=== PATIENT | female | born 1950 ===

== ENCOUNTER 2019-05-13 11:49 | Outpatient (REF) | payer MEDICARE, BC, SELFPAY ==
[2019-05-13 20:39] LABS: Anion Gap 6.6 mmol/L (3-11); BUN 16 mg/dL (7-18); CO2 30.4 mmol/L (21.0-32.0); CREATININE 0.78 mg/dL (0.55-1.02); Calcium 9.6 mg/dL (8.5-10.1); Chloride 102 mmol/L (98-107); Glucose 93 mg/dL (74-106); Potassium 4.7 mmol/L (3.5-5.1); Sodium 139 mmol/L (136-145)
== END 2019-05-13 12:09 ==
LOC: NCHCN 11:49
PROVIDERS: PCP Internal Medicine; Visit Provider Family Medicine
DX: R03.0 Elevated blood-pressure reading, without diagnosis of hypertension (principal)
CPT/HCPCS: 80048

== ENCOUNTER 2019-10-25 15:25 | Outpatient (REF) | payer MEDICARE, BC, SELFPAY ==
[2019-10-25 22:14] LABS: Anion Gap 8.1 mmol/L (3-11); BUN 15 mg/dL (7-18); CO2 28.9 mmol/L (21.0-32.0); CREATININE 0.59 mg/dL (0.55-1.02); Calcium 9.3 mg/dL (8.5-10.1); Chloride 101 mmol/L (98-107); Glucose 57 mg/dL (74-106); Potassium 4.3 mmol/L (3.5-5.1); Sodium 138 mmol/L (136-145)
== END 2019-10-25 15:45 ==
LOC: NCHCN 15:25
PROVIDERS: PCP Internal Medicine; Visit Provider Nurse Practitioner Family
DX: I10 Essential (primary) hypertension (principal)
CPT/HCPCS: 80048

== ENCOUNTER 2020-06-26 12:46 | Outpatient (REF) | payer MEDICARE, BC, SELFPAY ==
[2020-06-26 14:01] LABS: Calculated LDL 117 mg/dL (<100); Cholesterol 213 mg/dL (<200); HDL Cholesterol 84 mg/dL (40-60); Triglyceride 64 mg/dL (<150)
== END 2020-06-26 12:47 | disposition home or self-care (01) ==
LOC: NCHCN 12:46
PROVIDERS: PCP Internal Medicine; Visit Provider Registered Nurse
DX: E78.89 Other lipoprotein metabolism disorders (principal)
CPT/HCPCS: 80061

== ENCOUNTER 2020-10-16 10:25 | Outpatient (REF) | payer MEDICARE, BC, SELFPAY ==
[2020-10-16 18:50] LABS: ALT 37 U/L (14-59); Calculated LDL 68 mg/dL (<100); Cholesterol 153 mg/dL (<200); HDL Cholesterol 80 mg/dL (40-60); Triglyceride 29 mg/dL (<150)
== END 2020-10-16 10:26 | disposition home or self-care (01) ==
LOC: NCHCN 10:25
PROVIDERS: PCP Internal Medicine; Visit Provider Family Medicine
DX: E78.5 Hyperlipidemia, unspecified (principal)
CPT/HCPCS: 80061; 84460

== ENCOUNTER 2021-07-21 20:13 | Outpatient (REF) | payer MEDICARE, BC, SELFPAY ==
[2021-07-21 21:08] LABS: Anion Gap 8.6 mmol/L (3-11); BUN 18 mg/dL (7-18); CO2 27.4 mmol/L (21.0-32.0); CREATININE 0.7 mg/dL (0.55-1.02); Calcium 9.4 mg/dL (8.5-10.1); Chloride 99 mmol/L (98-107); Glucose 91 mg/dL (74-106); Potassium 4.5 mmol/L (3.5-5.1); Sodium 135 mmol/L (136-145)
== END 2021-07-21 20:14 | disposition home or self-care (01) ==
LOC: NCHCN 20:13
PROVIDERS: PCP Internal Medicine; Visit Provider Family Medicine
DX: I10 Essential (primary) hypertension (principal)
CPT/HCPCS: 80048

== ENCOUNTER → 2022-08-24 13:22 | Outpatient (BNVA) | payer MEDICARE, BC, SELFPAY | PROVIDERS: PCP Internal Medicine; Referring Provider Internal Medicine; Visit Provider Surgery | DX: R19.8 Other specified symptoms and signs involving the digestive system and abdomen (principal); Z12.11 Encounter for screening for malignant neoplasm of colon | CPT/HCPCS: 99202 ==

== ENCOUNTER 2022-09-28 16:59 | Outpatient (REF) | payer MEDICARE, BC, SELFPAY ==
[2022-09-28 21:12] LABS: Anion Gap 8.2 mmol/L (3-11); BUN 15 mg/dL (7-18); CO2 28.8 mmol/L (21.0-32.0); CREATININE 0.8 mg/dL (0.55-1.02); Calcium 9.6 mg/dL (8.5-10.1); Calculated LDL 69 mg/dL (<100); Chloride 98 mmol/L (98-107); Cholesterol 164 mg/dL (<200); Estimated GFR 77.75 (mL/min/1.73m2); Glucose 83 mg/dL (74-106); HDL Cholesterol 89 mg/dL (40-60); Potassium 4.8 mmol/L (3.5-5.1); Sodium 135 mmol/L (136-145); Triglyceride 34 mg/dL (<150)
== END 2022-09-28 17:00 | disposition home or self-care (01) ==
LOC: NCHCN 16:59
PROVIDERS: PCP Internal Medicine; Visit Provider Family Medicine
DX: E78.5 Hyperlipidemia, unspecified (principal); I10 Essential (primary) hypertension
CPT/HCPCS: 80048; 80061

== ENCOUNTER → 2023-02-02 13:15 | Outpatient (BNVA) | payer MEDICARE, BC, SELFPAY | PROVIDERS: PCP Family Medicine; Referring Provider Family Medicine; Visit Provider Physical Therapy Assistant | DX: Z12.11 Encounter for screening for malignant neoplasm of colon (principal) ==

== ENCOUNTER 2023-02-09 06:17 | Day surgery (SDC) | payer MEDICARE, BC, SELFPAY ==
--- NOTE | 2023-02-08 20:23 | W.PM.DSUDISC ---
Date of service: 02/09/23 Time of Service: 08:12 Discharge Plan Disposition Patient Disposition: Home Condition: Good Discharge Details Reason For Visit: screening colonoscopy Attending Provider: Jerry Staton Primary Care Provider: Lesly Harman Home Meds and New Rx's Prescriptions: Continued Metamucil 3.4 gram/5.4 gram powder 1 tbsp PO DAILY Rx Instructions: mix into at least 8 oz of water or juice before administering docusate sodium 100 mg capsule 100 mg PO DAILY PRN ascorbic acid (vitamin C) 500 mg capsule 500 mg PO DAILY calcium carbonate 600 mg calcium (1,500 mg) tablet 600 mg PO DAILY multivitamin Tablet 1 tab PO DAILY coenzyme Q10 100 mg capsule 100 mg PO DAILY nystatin 100,000 unit/gram powder 1 applic topical DAILY PRN losartan 50 mg tablet 50 mg PO DAILY atorvastatin 40 mg tablet 40 mg PO DAILY Discontinued bisacodyl [Dulcolax (bisacodyl)] 5 mg tablet,delayed release (DR/EC) 5 mg PO ONCE Qty: 4 0RF Rx Instructions: Take per colonoscopy instructions provided by ordering providers office polyethylene glycol 3350 17 gram/dose powder 17 g PO ONCE Qty: 238 0RF Rx Instructions: Take per colonoscopy instructions provided by ordering providers office Discharge Instructions Instructions: Diverticulosis (GEN), Colorectal Polyps (GEN), Diverticulosis Diet (GEN) Additional Instructions: Olga, we were able to complete your colonoscopy today without any difficulty. Your prep was excellent. I did find 1 single polyp in the area of your large intestine called the cecum. I removed this completely. It will take a week or so to get the results of the nature of the polyp, and once I have that I will be in touch with recommendations for your next colonoscopy if you are interested. Incidentally, you also have some diverticulosis. These are weak spots in the muscular wall of the colon that typically accumulate with age. They can become infected or inflamed, and when that happens, patients usually have pretty severe pain across the lower left side of their abdomen with associated fevers. During those times, some patients will benefit from treatment with antibiotics. Have attached some general information here regarding diverticular disease. If you have any questions in the meantime, please do not hesitate to call at any point. 1. If tolerated, consume a soft, low fiber diet for 1-2 days. 2. Do not drive, drink alcohol, operate machinery, make critical decisions, or do activities that require coordination or balance for 24 hours. 3. Because air was put into your colon during the procedure, expelling air from your rectum (passing gas or farting) is normal. 4. You may not have a bowel movement for 1-3 days because of the colonoscopy prep. This is normal. 5. Go directly to the emergency room if you notice any of the following: Develop chills (warm to touch), or if you have a thermometer and your temperature is above 101 Difficulty breathing or difficultly swallowing Persistent vomiting Severe abdominal pain, other than gas cramps Severe chest pain Black, tarry stools Any bleeding ? exceeding one tablespoon 6. Call your physician if the site where your intravenous was started becomes red, swollen, painful, and warm to touch. 7. Your physician has reviewed your pre-procedure medications. Please continue to take those medications as previously ordered. You will be given specific information/education regarding any changes to your medications before leaving. Activity:: Activity as Tolerated Diet:: As Tolerated Discharge Orders Discharge Orders: Discharge Order (Routine); Ordered 02/08/23 Ordered By: Jerry Staton DS: Diagnosis Discharge Diagnosis (1) Screen for colon cancer: Status: Acute Asessment and Plan: Follow-up on polypectomy results
--- NOTE | 2023-02-08 20:26 | COLE_ITS ---
Date of service: 02/09/23 Time of Service: 08:16 Colonoscopy Report Date of procedure: 02/09/23 Pre-op diagnosis general: screening colonoscopy Post-op diagnosis procedure note: other (Diverticulosis, cecal polyp) Procedure: Colonoscopy with polypectomy Surgeon: Jerry Staton Anesthesia Type: General:No Airway Estimated blood loss (mL): 5 Pathology: other (0.5 cm cecal polyp) Complications: None Disposition: same day Indications: Olga is a 72 year old woman who needs another screening colonoscopy Prep: Miralax/Dulcolax Procedure Start Time: 07:36 Procedure End Time: 07:54 Retraction Time: 7 Findings: 0.5 cm cecal polyp, diverticulosis Procedure Description: After the induction of monitored anesthetic care, and with the patient in left lateral decubitus position, I began by performing an external anorectal exam.? Perineum and skin were normal, as was the anal verge.? There was no not evidence of external hemorrhoids.? Next, I performed a digital rectal exam.? I did appreciate any abnormal findings.? Next, I advanced a colonoscope into the rectal vault.? I performed retroflexion.? This appeared normal.? Using insufflation, I then advanced the colonoscope beyond the rectal folds and into the sigmoid colon before advancing towards the cecum.? There was sigmoid diverticulosis.? The scope was noted to be in the cecum by identification of the ileocecal valve and appendiceal orifice.? On the floor of the appendix was a 0.5 cm flat polyp. I removed this with cold forcep polypectomy. Narrowband imaging was used to assist with visualization. I then began withdrawing the colonoscope using repeated irrigation as necessary for full evaluation of the colonic mucosa. ?Once the scope was withdrawn to the level of the rectum, great care was taken to examine portions of the rectal folds.? Finally, the scope was withdrawn and the patient was brought to the same-day surgery recovery unit as the anesthetic wore off. ?The findings and instructions were shared with the patient prior to discharge. [place] Bowel Prep Philadelphia Bowel Prep Right Colon: 3 Left Colon: 3 Transverse Colon: 3 Total Score: 9
[2023-02-09 06:25] VITALS: BP 151/72; PULSE 86; RESP 16; TEMP 36.2; O2SAT 100
[2023-02-09] MEDS: Lactated Ringers 1,000 ML 80 ML IV (06:44)
--- NOTE | 2023-02-09 06:58 | W.ANESPRE ---
General Info Date of Service Date Performed: 02/09/23 Height: 5 ft 6.5 in Weight: 66.9 kg Body Mass Index (BMI): 23.4 Surgical Procedure: Operation Date: 02/09/23 07:35 Proposed Procedure Side Surgeon p Colonoscopy Jerry Staton MD Pre-Op Diagnosis Post-Op Diagnosis Screening Colonoscopy Meds Allergies and Home Medications Allergies Allergy/AdvReac Type Severity Reaction Status Date / Time contrast dye Allergy Unknown Skin Rash Uncoded 02/09/23 06:24 Home Medication Medication Instructions Recorded ascorbic acid (vitamin C) 500 mg 500 mg PO DAILY 08/10/22 capsule atorvastatin 40 mg tablet 40 mg PO DAILY 08/10/22 calcium carbonate 600 mg calcium 600 mg PO DAILY 08/10/22 (1,500 mg) tablet coenzyme Q10 100 mg capsule 100 mg PO DAILY 08/10/22 docusate sodium 100 mg capsule 100 mg PO DAILY PRN 08/10/22 losartan 50 mg tablet 50 mg PO DAILY 08/10/22 multivitamin 1 tab PO DAILY 08/10/22 nystatin 100,000 unit/gram topical 1 applic topical DAILY PRN 08/10/22 powder psyllium husk 3.4 gram/5.4 gram 1 tbsp PO DAILY 08/24/22 oral powder (Metamucil) Current Visit Medications: Current Medications Generic Name Dose Route Start Last Admin Trade Name Freq PRN Reason Stop Dose Admin Hyoscyamine Sulfate 0.125 mg 02/08/23 20:27 Hyoscyamine 0.125 Mg Sl/Oral/Chew SL 03/10/23 20:26 DIRECTED PRN Ringer's Solution 1,000 mls @ 80 mls/hr 02/09/23 06:00 02/09/23 06:44 IV 03/10/23 23:59 80 mls/hr INFUSION DUYEN Administration IV Miscellaneous Supplies 1 each 02/09/23 06:00 Iv Access IV 03/10/23 23:59 DIRECTED DUYEN Ondansetron HCl 4 mg 02/08/23 20:27 Ondansetron 4 Mg/2 Ml Vial IVP 03/10/23 20:26 Q4H PRN PRN Nausea / Vomiting Sodium Chloride 0 ml 02/09/23 06:00 Normal Saline Flush 10 Ml Syr IV 03/10/23 23:59 PRN PRN Sodium Chloride 0 ml 02/09/23 06:00 Normal Saline 10 Ml Vial IJ 03/10/23 23:59 DIRECTED PRN Sterile Water 0 ml 02/09/23 06:00 Water,Injection,Sterile 10 Ml Vial IJ 03/10/23 23:59 DIRECTED PRN PFSH Active Problems Active Problems: Problem Status Onset Code Screen for colon cancer Z12.11 Bilateral lower extremity edema R60.0 Epidermal inclusion cyst L72.0 Change in bowel movement R19.8 Neoplasm of uncertain behavior of skin D48.5 Medical History Medical History Cheilitis Ganglion cyst of flexor tendon sheath of finger History of basal cell carcinoma History of constipation History of osteosarcoma Hyperlipidemia Hypertension Left atrial enlargement Onychomycosis Osteopenia 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 Tobacco Smoking/Tobacco Use Status: Never Alcohol Alcohol Intake: current Alcohol intake frequency: a few times a week Alcohol type: wine Substance Use Substance use type: does not use Vital Signs and Lab Results Vital Signs Most Recent Vital Signs in EMR: Most Recent Vital Signs Temp Pulse Resp BP Pulse Ox 36.2 C L 86 16 151/72 H 100 02/09/23 06:25 02/09/23 06:25 02/09/23 06:25 02/09/23 06:25 02/09/23 06:25 Lab Results Blood Type / Crossmatch: No Data to Display Complete Blood Count: No Data to Display Complete Metabolic Panel: No Data to Display Liver Function Panel: No Data to Display Coagulation Panel: No Data to Display Cardiac Panel: No Data to Display Arterial Blood Gas: No Data to Display Venous Blood Gas: No Data to Display Pancreas Panel: No Data to Display Thyroid Panel: No Data to Display Infectious Disease: No Data to Display Blood Cultures: No Data to Display Toxicology Panel: No Data to Display Anesthesia Assessment and Plan Anesthesia History Personal History: No History of Anesthesia Complications Family History: No Family History of Anesthesia Complications Exercise Tolerance Exercise Tolerance: Metabolic Equivalents>4 Pertinent Negatives Pertinent Negatives: No Symptoms of GERD, No Major Cardiovascular Symptoms or Complaints, No Major Pulmonary Symptoms or Complaints and No History of CVA/TIA Cardiac & Pulmonary Exam Cardiac Exam: Normal S1/S2 Heart Sounds Pulmonary Exam: Clear Bilateral Breath Sounds Implantable Cardiac Device Does patient have a Pacemaker or an ICD?: No Airway Exam Known Difficult Airway: No Mallampati Class: 2 Mouth Opening: Narrow (< 3cm) Thyromental Distance: Less than 3 cm Neck Range of Motion: Full ROM Neck Circumference: Normal Teeth Condition: Normal Dentition ASA Classification ASA Score: ASA 2 Emergency Case?: No NPO Status NPO Status: NPO Clears >2 hours, Solids >8 hours Anesthesia Plan Resuscitation Status: Full Code Anesthesia Technique: General Anesthesia Airway Planned: Natural Airway Monitors Used: Standard Monitors
[2023-02-09 07:26] VITALS: BMI 23.4
--- NOTE | 2023-02-09 07:49 | BOWEL_PTH ---
PATIENT: Olga Lamar LOC: [facility] U#:[id number] AGE/SX: 72/F ROOM: RE02/09/[address]: Jerry Staton MD : [id number] BED: DIS: 02/09/2023 SPEC #: [id number] RECD: 02/09/23 12:42 STATUS: CARA REQ #: [id number] YAIR: 02/09/23 07:[address]: Jerry Staton DEPT: Surgical Specimen RECD BY: Janay Griffith ENTERED: 02/09/23 12:43 SP TYPE: Bowel OTHR DR: Lesly Harman Tissues: 1 - BIOPSY BOWEL Procedures: GROSS AND MICRO LEVEL 4 Comments: [id number]
[2023-02-09 08:07] VITALS: BP 97/54; PULSE 83; RESP 16; TEMP 36.6; O2SAT 99
--- NOTE | 2023-02-09 08:09 | W.ANESPOSTOP ---
Postoperative Evaluation Date, Time and Location Date Performed: 02/09/23 Time Performed: 08:09 Patient Location: Day Surgery Unit Vital Signs Most Recent Imported Vital Signs: Most Recent Vital Signs Temp Pulse Resp BP Pulse Ox 36.6 C 83 16 97/54 L 99 02/09/23 08:07 02/09/23 08:07 02/09/23 08:07 02/09/23 08:07 02/09/23 08:07 Pain Score Most Recent Pain Score: Most Recent Pain Score Pain Level 0 02/09/23 08:07 Assessment Mental Status: Awake (Alert & Oriented to Patient Baseline) Airway and Respiratory Function: Patent airway with normal (patient baseline) respiratory exam Cardiovascular Function: Hemodynamically Stable Hydration Status: Adequately Hydrated Nausea & Vomiting: No Nausea or Vomiting Pain: Pt. Denies Any Pain Peripheral Nerve Block: Patient did not receive a nerve block
[2023-02-09 08:37] VITALS: BP 118/65; PULSE 60; RESP 16; TEMP 36.7; O2SAT 100
== END 2023-02-09 06:18 | disposition home or self-care (01) ==
PROVIDERS: PCP Family Medicine; Visit Provider Surgery
PROC: 0DJD8ZZ Inspection of Lower Intestinal Tract, Via Natural or Artificial Opening Endoscopic (ICD-10-PCS; CPT 45378; principal; 2023-02-09 07:30)
DX: Z12.11 Encounter for screening for malignant neoplasm of colon (principal); D12.0 Benign neoplasm of cecum; K57.30 Diverticulosis of large intestine without perforation or abscess without bleeding
CPT/HCPCS: 45380; 88305; J2001; J2405

== ENCOUNTER 2023-10-02 23:38 | Outpatient (REF) | payer MEDICARE, BC, SELFPAY ==
[2023-10-02 22:22] LABS: Anion Gap 11.1 mmol/L (3-11); BUN 13 mg/dL (7-18); CO2 24.9 mmol/L (21.0-32.0); CREATININE 0.7 mg/dL (0.55-1.02); Calcium 9.8 mg/dL (8.5-10.1); Calculated LDL 64 mg/dL (<100); Chloride 101 mmol/L (98-107); Cholesterol 169 mg/dL (<200); Glucose 85 mg/dL (74-106); HDL Cholesterol 95 mg/dL (40-60); Potassium 4.6 mmol/L (3.5-5.1); Sodium 137 mmol/L (136-145); Triglyceride 50 mg/dL (<150)
== END 2023-10-02 23:39 | disposition home or self-care (01) ==
LOC: NCHCN 23:38
PROVIDERS: PCP Family Medicine; Visit Provider Family Medicine
DX: E78.5 Hyperlipidemia, unspecified (principal); I10 Essential (primary) hypertension
CPT/HCPCS: 80048; 80061

== ENCOUNTER 2024-10-03 19:41 | Outpatient (REF) | payer MEDICARE, BC, SELFPAY ==
[2024-10-03 20:41] LABS: Anion Gap 7.4 mmol/L (3-11); BUN 17 mg/dL (7-18); CO2 30.6 mmol/L (21.0-32.0); Calcium 9.5 mg/dL (8.5-10.1); Calculated LDL 61 mg/dL (<100); Chloride 100 mmol/L (98-107); Cholesterol 161 mg/dL (<200); Estimated GFR 93.55 (mL/min/1.73m2); Glucose 90 mg/dL (74-106); HDL Cholesterol 90 mg/dL (>or=50); Potassium 5.4 mmol/L (3.5-5.1); Sodium 138 mmol/L (136-145); Triglyceride 50 mg/dL (<150)
== END 2024-10-03 19:42 | disposition home or self-care (01) ==
LOC: NCHCN 19:41
PROVIDERS: PCP Family Medicine; Visit Provider Family Medicine
DX: I10 Essential (primary) hypertension (principal); E78.5 Hyperlipidemia, unspecified
CPT/HCPCS: 80048; 80061